=== PATIENT | male | born 1980 | race Caucasian/White ===

== ENCOUNTER 2025-04-10 10:42 | Emergency (ER) | payer MEDICAID, SELFPAY ==
[2025-04-10 10:49] VITALS: BP 127/94
--- NOTE | 2025-04-10 12:05 | ED.GENMED ---
History of Present Illness
<HOA Aragon - Last Filed: 04/10/25 18:45>
General
Chief Complaint: Skin Problem
Source: patient
Exam Limitations: none
Time Seen by Provider: 04/10/25 11:24
Nursing documentation reviewed up to this point in time: agreed with
History of Present Illness
History of Present Illness:
Patient is a 45 male who presents to the ER for evaluation. Patient has a history of Klinefelter syndrome and typically uses testosterone injections once a week. He lost his insurance in December and 2 weeks ago patient used a black market type of
testosterone that he got from his friend. He injected subcu like he typically does in his left side of the abdomen and another injection in his right and now complains of 2 masses in his abdomen. They are tender. He has had bodyaches but denies
any chills
Phy Exam
<HOA Aragon - Last Filed: 04/10/25 18:45>
General Physical Exam
General Presentation: no apparent distress
General age: appears stated age
General Skin: warm and dry
General Habitus: normal
General Mental: alert
General Hydration: appears well hydrated
Gastrointestinal Exam
Gastrointestinal Exam: soft and other (2 separate areas/mass of induration to lower abdomen ;areas are hard no fluctuance no erythema to skin )
Neurological Exam
Neurological Exam: alert and oriented x3
Musculoskeletal Exam
Musculoskeletal Exam: full ROM
Skin Exam
Skin Exam: normal color and warm/dry
Psychiatric Exam
Psychiatric Exam: normal mood/affect
Course
<HOA Aragon - Last Filed: 04/10/25 18:45>
Orders/Labs/Results
Orders:
Orders
04/10/25 12:07
IV Insert/Care/Rem.- Treatment PRN
0.9% Sodium Chloride 1000 ml [Nss] 1,000 ml IV BOLUS
04/10/25 12:10
Complete Blood Count/With Diff Urgent
Comprehensive Metabolic Panel Urgent
04/10/25 12:16
CT Abd/pelvis W Iv Cont Urgent
Comment:
Reason For Exam: tender palpable masses to abdomen
Abnormal Lab Results
04/10/25
12:10
WBC 4.7 L 10^3/uL
(4.8-10.8)
MPV 10.6 H fL
(7.4-10.4)
BUN 21 H mg/dl
(9-20)
Glucose 128 H mg/dl
(70-99)
Total Bilirubin 1.5 H mg/dl
(0.2-1.3)
Total Protein 8.6 H g/dl
(6.3-8.2)
Albumin 5.2 H g/dl
(3.5-5.0)
04/10/25 12:10
04/10/25 12:10
Vital Signs
Initial and Last Documented VS:
Initial Vital Signs
Temp Pulse Resp BP Pulse Ox
98.3 F 97 16 127/94 98
04/10/25 10:49 04/10/25 10:49 04/10/25 10:49 04/10/25 10:49 04/10/25 10:49
Last Documented Vital Signs
Temp Pulse Resp BP Pulse Ox
98.3 F 97 16 127/94 98
04/10/25 10:49 04/10/25 10:49 04/10/25 10:49 04/10/25 10:49 04/10/25 12:07
Pantograph I Engraver consulted with Physician
Pantograph I Engraver consulted with physician?: Yes
Name of Physician Consulted: Dai
<Malik Lala, DO - Last Filed: 04/11/25 08:15>
Orders/Labs/Results
Orders:
Orders
04/10/25 12:07
IV Insert/Care/Rem.- Treatment PRN
0.9% Sodium Chloride 1000 ml [Nss] 1,000 ml IV BOLUS
04/10/25 12:10
Complete Blood Count/With Diff Urgent
Comprehensive Metabolic Panel Urgent
04/10/25 12:16
CT Abd/pelvis W Iv Cont Urgent
Comment:
Reason For Exam: tender palpable masses to abdomen
Abnormal Lab Results
04/10/25
12:10
WBC 4.7 L 10^3/uL
(4.8-10.8)
MPV 10.6 H fL
(7.4-10.4)
BUN 21 H mg/dl
(9-20)
Glucose 128 H mg/dl
(70-99)
Total Bilirubin 1.5 H mg/dl
(0.2-1.3)
Total Protein 8.6 H g/dl
(6.3-8.2)
Albumin 5.2 H g/dl
(3.5-5.0)
04/10/25 12:10
04/10/25 12:10
Vital Signs
Initial and Last Documented VS:
Initial Vital Signs
Temp Pulse Resp BP Pulse Ox
98.3 F 97 16 127/94 98
04/10/25 10:49 04/10/25 10:49 04/10/25 10:49 04/10/25 10:49 04/10/25 10:49
Last Documented Vital Signs
Temp Pulse Resp BP Pulse Ox
98.3 F 97 16 127/94 98
04/10/25 10:49 04/10/25 10:49 04/10/25 10:49 04/10/25 10:49 04/10/25 12:07
<HOA Aragon - Last Filed: 04/10/25 18:45>
MDM/Problems Addressed
Differential Diagnosis Includes:
Not limited to abscess, seroma, contusion/hematoma
MDM/Problems Addressed:
44-year-old male presenting to the ER for 2 palpable masses in his abdomen after using' black market,' testosterone subcutaneously.
He has had bodyaches denies any fevers he is afebrile here no acute distress case reviewed with radiology will order CAT scan with IV contrast. IV fluids ordered.
CAT scan does confirm 2 Poorly defined collections within the cutaneous tissues of the anterior pelvic wall, possible 2 small abscesses. Patient was eval by ED physician. Case reviewed with surgery for consult.
Surgery did evaluate patient does not feel that this will require any type of operative treatment. Will DC with supportive care pain with oupt fu by surgery. Patient will discuss situation with his space systems operations craftsman to try to get a formal
prescription of testosterone. He will use other areas of abdomen for subcu injection.
he is to return if any worsening of symptoms.
Chronic conditions affecting care:
Klinefelter syndrome requiring testosterone injections
<HOA Aragon - Last Filed: 04/10/25 18:45>
*Radiology
Radiology exam reviewed: radiology read reviewed
*Pulse Oximetry
SaO2: 98
Oxygen Mode of Delivery: Room air
Patient hypoxic: no
*Critical Care Note
Total Time (30-74mins, 75-104mins- exclusive of procedures): Not Applicable
<HOA Aragon - Last Filed: 04/10/25 18:45>
Patient Management
Discussion with other providers: Cos[employer] Presser
Escalation/DeEscalation of care consider admission/obs:
Dr Almeida
ED Attending Note
<HOA Aragon - Last Filed: 04/10/25 18:45>
-
Portions of this chart may have been created with voice recognition software.� Occasional wrong word or��sound alike� substitutions may have occurred due to the inherent limitations of voice recognition software.
<Malik Lala, DO - Last Filed: 04/11/25 08:15>
ED Attending Note
Patient seen and examined by attending physician: Yes
ED Attending Note:
I have reviewed and agree with history and treatment plan by HOA Gong. My exam revealed 45-year-old male with bilateral fluid collections abdomen, from testosterone injections. Will discuss with general surgery for further evaluation
and possible operative drainage.
Dr. Martinez saw pt and recommends outpatient observation. Incision and drainage not necessary.
Discharge Plan
Departure
Patient Disposition: Home (Routine Discharge)
Date of Disposition: 04/10/25
Time of Disposition: 15:39
Patient with high blood pressure during this ER visit?: Yes
Condition: Fair
Covid-19: Not Applicable
Discharge Problem:
Abdominal abscess
Instructions: BLOOD PRESSURE
Referrals:
Juan Pablo Monge MD [Family Provider, Internal Medicine]
Radames Martinez MD [Active, Surgical]
Activity Restrictions/Additional Instructions:
As discussed follow-up with surgery as recommended. Return if any worsening of symptoms or increased pain swelling redness fever chills.
Interventions
Interventions:
*Risk Screen - Suicide Last Done: 04/10/25 10:49
*General Assessment Last Done: 04/10/25 12:20
*Neglect/Abuse Screening Last Done: 04/10/25 10:49
*ED- Fall Risk Assessment Last Done: 04/10/25 15:54
*ED COVID-19 Vaccine History Last Done: 04/10/25 15:54
*ED Influenza Vaccine History Last Done: 04/10/25 15:54
*Nursing Disposition Last Done: 04/10/25 15:54
ED-Skin Assessment Last Done: 04/10/25 12:16
Discharge Date and Time
Discharge Date/Time: 04/10/25 15:55
Print Language: INDONESIAN
[2025-04-10] MEDS: NSS 1000 IV (12:11)
[2025-04-10 12:22] LABS: Hematocrit 52.0 % (39.0-52.0); Hemoglobin 17.4 g/dL (13.0-18.0); Mean Corp Hgb Conc. 33.5 g/dL (33.0-37.0); Mean Corpuscular Volume 88.6 fL (80.0-94.0); Nucleated Red Blood Cells % 0 % (-); Platelet Count 194 10^3/uL (130-400); Red Cell Dist. Width 12.9 % (11.5-14.5)
[2025-04-10 12:42] LABS: ALT (SGPT) 36 U/L (0-50); AST (SGOT) 32 U/L (17-59); Albumin 5.2 g/dl (3.5-5.0); Alkaline Phosphatase 109 U/L (38-126); Blood Urea Nitrogen 21 mg/dl (9-20); Calcium 10.1 mg/dl (8.4-10.2); Carbon Dioxide 25 mmol/L (22-30); Chloride 104 mmol/L (98-107); Glucose 128 mg/dl (70-99); Potassium 4.4 mmol/L (3.5-5.1); Sodium 137 mmol/L (135-145); Total Protein 8.6 g/dl (6.3-8.2); eGFR > 60.00
--- NOTE | 2025-04-10 15:32 | CON.GS ---
Addendum entered and electronically signed by Radames Martinez MD 04/10/25 16:01:
I saw and examined the patient independently.
The Manager Managed Care's note was reviewed and I agree with the note, assessment and plan except where noted below.
Comment: 45-year-old male presents with warm subcutaneous lumps in the setting of nonprescription testosterone injection from a friend. He states that he used Fresh needle and his usual aseptic technique. He denies any erythema or discharge from
the wound. On exam he has palpable mildly tender 2 cm lumps in the left and right lower quadrants without overlying erythema or fluctuance. There is no discharge. His white count is normal and he is afebrile. His vitals are also normal. I
reviewed his CT scan personally and discussed with the radiologist there are findings. While there is certainly some degree of inflammation around the subcutaneous lesions on the CAT scan there is no obvious fluid collection or abscess. I suspect
that these are injection site reactions that will slowly resolve over the next several months.
No acute surgical intervention warranted.
I do not have a strong clinical suspicion for an active infection so no role for antibiotics at this time but will defer to the ED.
Patient to follow-up with me in 6 months at which point we can reassess their size and whether they are still causing him symptoms. An excision under local would be reasonable.
We reviewed signs and symptoms to look out for that should prompt a return to the emergency department or my office such as fever, chills, altered mental status and erythema, fluctuance and or discharge or if the lumps are getting larger.
All questions answered, patient and his are agreeable to the plan of care above.
I spent 35 minutes in total for the care of this patient today including direct patient care and counseling, reviewing labs, imaging, coordination of care, as well as documentation.
Original Note:
Consultation
-
Date/Time Consultation Performed: 04/10/25 4445
Medical History
-
Chief Complaint: lumps near umbilicus
History of Present Illness:
Mr Sanchez is a 45 yo male with a h/o MRSA infections, Obesity, NIDDM and Klinefelter's who was on regularly dosed testosterone injections through an plumber's assistant which he previously administered sq. He lost his insurance and was unable to renew
his prescription and obtained some testosterone manufactured in [place] on the black market from a friend. He notes the friend recommended using the formulation IM but he used it SQ as he always had with prior injections. He injected 0.4ml under the
skin to the lower left of the umbilicus about 10 days ago and developed a lump at that site shortly thereafter which has persisted. He used a smaller dose for his next dosage and again developed another lump to the lower left of the umbilicus. He
notes he used clean needles and an unused vial of testosterone for injections. There is no erythema or drainage. There is no area of fluctuance. He only has tenderness to palpation of the area but otherwise no tenderness. He denies fevers or chills.
Past Medical History
Past Medical History: NIDDM and Other (Klinefelter's, obesity)
Past Surgical History: Appendectomy
Family History
Family History: Reviewed & Not Pertinent
Allergies / Home Medications
Allergy/AdvReac Type Severity Reaction Status Date / Time
anastrozole Allergy Anaphylaxis Verified 04/10/25 10:48
Review of Systems
-
History Source: Patient and Family
All other systems: Negative unless noted
A 10 point review of systems was completed, and was negative except as per HPI.
Physical Exam
Vital Signs
Temp Pulse Resp BP Pulse Ox
98.3 F 97 16 127/94 98
04/10/25 10:49 04/10/25 10:49 04/10/25 10:49 04/10/25 10:49 04/10/25 12:07
Lab Results
04/10/25 12:10
04/10/25 12:10
WBC 4.7 10^3/uL (4.8-10.8) L 04/10/25 12:10
Hgb 17.4 g/dL (13.0-18.0) 04/10/25 12:10
Hct 52.0 % (39.0-52.0) 04/10/25 12:10
Plt Count 194 10^3/uL (130-400) 04/10/25 12:10
Abs Immat Gran (auto) 0.0 10^3/uL (0-0.05) 04/10/25 12:10
Neutrophils % 52.6 % (42.2-75.2) 04/10/25 12:10
Physical Exam
General: Well Developed and Well Nourished
HEENT: Moist Mucous Membranes
Respiratory: Non Labored Respirations
GI: Soft and Other (focal areas of tenderness/induration to the left and right of the umbilicus. no erythema or draiange. )
Skin: Warm
Neuro: Awake, Alert and AO x 3
Psych: Calm
Data Reviewed
-
CT Scan: Image Personally Visualized and interpreted, Report Reviewed by me, Discussed with Physician, Discussed with Patient and Discussed with Family
Labs: Labs Reviewed by me, Discussed with Physician, Discussed with Patient and Discussed with Family
Old Records: Reviewed
Assessment / Plan
-
45 yo male presenting with development of 2 hardened areas at SQ injection sites of black market testosterone. Clean needles utilized. He has no fevers, chills, or leukocytosis. No erythema, drainage or fluctuance. Ct reviewed without evidence of
abscess/organized collection. Lesions/inflammation noted at injection sites.
Plan:
No surgical intervention at this time. Anticipate these 2 lesions may take a few months to fully resolve.
Outpatient surgical follow up if these areas become reddened, draining or more painful
Outpatient endocrine vs urologic follow up for management of Klinefelter's
== END 2025-04-10 15:55 | disposition home or self-care (01) ==
LOC: EMR 10:42
PROVIDERS: Nurse Practitioner; EMERGENCY PHYSICIAN Emergency Medicine; FAMILY PHYSICIAN Family Medicine
DX: L02.211 Cutaneous abscess of abdominal wall (principal); R10.9 Unspecified abdominal pain; Q98.4 Klinefelter syndrome, unspecified; E11.9 Type 2 diabetes mellitus without complications; E66.9 Obesity, unspecified; Z86.14 Personal history of Methicillin resistant Staphylococcus aureus infection; Z90.49 Acquired absence of other specified parts of digestive tract
CPT/HCPCS: 99284; 96360; 74177; 80053; 85025; Q9967